=== PATIENT | female | born 1990 | race Caucasian/White ===

== ENCOUNTER 2017-10-02 14:58 | Emergency (ER) | payer SELFPAY ==
[2017-10-02 15:54] LABS: Bilirubin Negative (Negative); Blood, Urine Negative (Negative); Clarity CLEAR (Clear); Glucose, Urine (Dipstick) Negative (Negative); Leukocyte Negative (Negative); Nitrite Negative (Negative); Protein, Urine (Dipstick) Negative (Neg-Trace); Specific Gravity, Urine 1.027 (1.002-1.036)
[2017-10-02 15:58] LABS: Pregnancy Test - Urine (BHCG) Negative (Negative); Pregu Control Background? CLEAR/WHITE (CLR/WHITE); Pregu Control Bar Appear? YES (CONTROL BAR); Specific Gravity 1.027 (1.002-1.036)
[2017-10-02 17:25] LABS: #Eosinphils 0.1 thou/uL (0.0-0.7); #Lymphocytes 1.6 thou/uL (1.20-3.40); #Monocytes 0.3 thou/uL (0.11-0.59); #Neutrophils 2.1 thou/uL (1.40-6.50); %Lymphocytes 39.8 % (21.0-51.0); %Monocytes 6.9 % (0.0-10.0); %Neutrophils 50.3 % (42.0-75.0); Hemoglobin 13.1 g/dL (12.0-16.0); Mean Corpuscular HGB CONC 33.5 g/dL (32.0-36.0); Mean Corpuscular Hemoglobin 33.1 pg (27.0-31.0); Mean Corpuscular Volume 98.9 fl (81.0-99.0); Mean Platelet Volume 7.9 fL (7.4-10.4); Platelet Count 218 thou/uL (130-400); RBC Distribution Width 11.6 % (11.5-14.5); Red Blood Cell (RBC) Count 3.95 mill/uL (4.20-5.40); White Blood Cell (WBC) Count 4.1 thou/uL (4.8-10.8)
[2017-10-02 17:52] LABS: Anion Gap 6 mmol/L (10-20); BUN (Urea Nitrogen) 16 mg/dL (7.0-18.7); Calc. Creatinine Clearance 0 mL/min (70-130); Calcium 8.7 mg/dL (7.8-10.44); Carbon Dioxide 31 mmol/L (22-29); Chloride 107 mmol/L (98-107); Estimated GFR-MDRD 81; Glucose 95 mg/dL (70-105); Potassium 4.2 mmol/L (3.5-5.1); Sodium 140 mmol/L (136-145)
[2017-10-02] MEDS ORDERED: traMADol HCl 50 MG TAB ONE (18:35)
--- NOTE | 2017-10-02 18:51 | ULT ---
HISTORY: Pelvic pain. Patient has Essure contraceptive device x2 years. COMPARISON: None. TECHNIQUE: Transabdominal and endovaginal imaging of the pelvis is performed. Ovaries are interrogated with solano scale, color flow, doppler imaging with spectral waveform analysis. FINDINGS: Uterus is identified, without myometrial masses. The uterus measures 8.8 x 4.5 x 5.0 cm. Endometrium has a homogeneous echotexture with a diameter of 0.6 cm. Follicles in the right ovary are noted. Overall, the right ovary measures 2.0 x 2.4 x 2.7 cm. Follicl es in the left ovary are noted. Overall, left ovary measures 3.0 x 2.5 x 2.3 cm. There is free fluid in the cul-de-sac. OVARIAN DOPPLER: Flow to both ovaries. There is an echogenic area in the uterine fundus extending towards the adnexa. These appear to symmet jocelyn and may be associated with the Essure device. Correlate clinically. IMPRESSION: 1. Unremarkable pelvic ultrasound. 2. Echogenic foci in the uterine fundus as described above. Correlate clinically with radiograph of the pelvis. POS: [facility]
[2017-10-04 03:21] LABS: Chlamydia by PCR Not Detected (NotDetected); GC by PCR Not Detected (NotDetected)
== END 2017-10-02 18:48 | disposition home or self-care (01) ==
LOC: ERS 14:58
DX: R10.2 Pelvic and perineal pain (principal); F31.9 Bipolar disorder, unspecified; F41.9 Anxiety disorder, unspecified; F90.9 Attention-deficit hyperactivity disorder, unspecified type; F17.210 Nicotine dependence, cigarettes, uncomplicated; Z79.899 Other long term (current) drug therapy
CPT/HCPCS: 36415; 76856; 80048; 81003; 81025; 85025; 87480; 87491; 87510; 87591; 87660

== ENCOUNTER 2018-01-10 10:26 | Emergency (ER) | payer SELFPAY ==
[2018-01-10 11:18] LABS: Bilirubin Negative (Negative); Blood, Urine Negative (Negative); Clarity CLEAR (Clear); Glucose, Urine (Dipstick) Negative (Negative); Leukocyte Negative (Negative); Nitrite Negative (Negative); Protein, Urine (Dipstick) Negative (Neg-Trace); Specific Gravity, Urine 1.021 (1.002-1.036)
[2018-01-10] MEDS ORDERED: Lidocaine 1% (PF) 30 ML VIAL ONE (11:31)
[2018-01-10] MEDS ORDERED: cefTRIAXone\\ROCEPHIN 250 MG VIAL ONE (11:31)
[2018-01-10] MEDS ORDERED: Azithromycin 250 MG TAB ONE (11:31)
[2018-01-13 01:51] LABS: Chlamydia by PCR DETECTED (NotDetected); GC by PCR DETECTED (NotDetected)
== END 2018-01-10 11:46 | disposition home or self-care (01) ==
LOC: ERS 10:26
DX: A64 Unspecified sexually transmitted disease (principal); F17.210 Nicotine dependence, cigarettes, uncomplicated
CPT/HCPCS: 81003; 87480; 87491; 87510; 87591; 87660; 96372; J0696; J2001

== ENCOUNTER 2018-03-14 19:09 | Emergency (ER) | payer SELFPAY ==
--- NOTE | 2018-03-14 21:08 | RAD ---
FOUR VIEWS OF THE RIGHT ELBOW: 03/14/18 COMPARISON: None. HISTORY: Recent right radial head fracture. FINDINGS: No discrete elbow joint effusion noted. No displaced fracture or evidence of dislocation is seen. IMPRESSION: No acute findings. POS: [facility]
== END 2018-03-14 21:51 | disposition home or self-care (01) ==
LOC: ERS 19:09
DX: M25.521 Pain in right elbow (principal); F41.9 Anxiety disorder, unspecified; F31.9 Bipolar disorder, unspecified; F90.9 Attention-deficit hyperactivity disorder, unspecified type; Z87.891 Personal history of nicotine dependence

== ENCOUNTER 2018-05-28 02:31 | Emergency (ER) | payer SELFPAY ==
[2018-05-28] MEDS ORDERED: Azithromycin 250 MG TAB ONE ×2 (03:20→03:23)
[2018-05-28] MEDS ORDERED: cefTRIAXone\\ROCEPHIN 250 MG VIAL ONE (03:20)
[2018-05-28] MEDS ORDERED: Lidocaine 2% PF 5 ML VIAL ONE (03:21)
[2018-05-28] MEDS ORDERED: Lidocaine 1% PF 5 ML VIAL ONE (03:23)
[2018-05-28 03:52] LABS: Bilirubin Negative (Negative); Blood, Urine Negative (Negative); Clarity CLEAR (Clear); Glucose, Urine (Dipstick) Negative (Negative); Leukocyte Negative (Negative); Nitrite Negative (Negative); Protein, Urine (Dipstick) Negative (Neg-Trace); Specific Gravity, Urine 1.024 (1.002-1.036); Urobilinogen 0.2 mg/dL (0.2-1.0)
[2018-05-28 03:55] LABS: Pregnancy Test - Urine (BHCG) Negative (Negative); Specific Gravity 1.024 (1.002-1.036)
[2018-05-28 03:56] LABS: Pregu Control Background? CLEAR/WHITE (CLR/WHITE); Pregu Control Bar Appear? YES (CONTROL BAR)
[2018-05-30 03:19] LABS: Chlamydia by PCR Not Detected (NotDetected); GC by PCR DETECTED (NotDetected)
== END 2018-05-28 04:11 | disposition home or self-care (01) ==
LOC: ERS 02:31
DX: Z20.2 Contact with and (suspected) exposure to infections with a predominantly sexual mode of transmission (principal); F17.210 Nicotine dependence, cigarettes, uncomplicated
CPT/HCPCS: 81003; 81025; 87480; 87491; 87510; 87591; 87660; 96372; J0696; J2001

== ENCOUNTER 2019-08-03 20:42 | Emergency (ER) | payer OTHER, SELFPAY ==
[2019-08-03] MEDS ORDERED: Bacitracin 1 PK ONE (21:21)
== END 2019-08-03 21:25 | disposition home or self-care (01) ==
LOC: ERS 20:42
DX: T22.212A Burn of second degree of left forearm, initial encounter (principal); L03.114 Cellulitis of left upper limb; F41.9 Anxiety disorder, unspecified; F31.9 Bipolar disorder, unspecified; F90.9 Attention-deficit hyperactivity disorder, unspecified type; F17.210 Nicotine dependence, cigarettes, uncomplicated; X19.XXXA Contact with other heat and hot substances, initial encounter
CPT/HCPCS: 99283

== ENCOUNTER 2022-04-01 11:53 | Emergency (ER) | payer SELFPAY ==
[2022-04-01] MEDS ORDERED: Ketorolac Tromethamine 30 MG/ML VIAL ONE (13:07)
== END 2022-04-01 13:30 | disposition home or self-care (01) ==
LOC: ERS 11:53
DX: S29.012A Strain of muscle and tendon of back wall of thorax, initial encounter (principal); F17.210 Nicotine dependence, cigarettes, uncomplicated; X58.XXXA Exposure to other specified factors, initial encounter
CPT/HCPCS: 71045; 93005; 96372; J1885